=== PATIENT | male | born 1970 | race Caucasian/White ===

== ENCOUNTER 2021-06-02 10:31 | Emergency (ER) | payer BC, SELFPAY ==
[2021-06-02 11:13] VITALS: BP 162/98; PULSE 60; RESP 18; TEMP 36.9; O2SAT 96; BMI 26.4
--- NOTE | 2021-06-02 11:24 | CT_ITS ---
WS: [id number] CT abdomen pelvis w con* [id number] REASON FOR EXAM: Abd pain IV CONTRAST ADMINISTERED: 95 mL of Omnipaque 300 TOTAL EXAM DLP: 1472.[address] scans at [facility] use at least one of these dose optimization techniques: automat ed exposure control; mA and/or kV adjustment per patient size (includes targeted exams where dose is matched to clinical indication); or iterative reconstruction. FINDINGS: ABDOMEN: The liver, spleen, pancreas, and gallbladder are unremarkable. The adrenals and the right kidney are normal. There is an infiltrative process in the perinephric space around the left kidney. This infiltrative p rocess extends distally from the ureteropelvic junction inferiorly paralleling the course of the uret er. There is mild dilatation of the renal pelvis. There is hyperenhancement of the left ureter to the level of the urinary bladder. There is faint extravasation of contrast(urine) extending distally in close approximation of the ureter. No abdominal mass or adenopathy is identified. No bowel abnormality is identified. There is a normal appendix. PELVIS: There is a 3 to 4 mm calculus at the left ureterovesical junction. No mass, adenopathy, free fluid, or focal fluid collection. CT/CT abdomen pelvis w con* [id number] IMPRESSION: The findings are felt to represent passage of a small calculus from the left ki dney to the ureteral vesicle junction with presumed obstructive uropathy with s ubsequent forniceal rupture and perinephric urine extravasation with retroperit caro extension parallel to the left ureter. The forniceal rupture has decompre ssed the obstruction. The stomach remains at the ureterovesical junction.
--- NOTE | 2021-06-02 11:25 | ED_ITS ---
HPI - Abdominal Pain General: Chief Complaint: Abdominal Pain Stated Complaint: ABD PAIN Time Seen by Provider: 06/02/21 11:21 History of Present Illness: HPI narrative: This patient is a 50-year-old male that presents to the emergency department for severe left lower quadrant abdominal pain some insulin is guarding. Patient states it began suddenly significant amount of pain and made him have nausea and vomiting. Patient denies diarrhea or constipation. Denies any history of surgery. Will do medical evaluation treat as needed MD elicited complaint: abdominal pain Onset (ago): hour(s) Pain Consistency: constant Location: LLQ Severity: severe Quality: aching and sharp Radiation: none Migration to: no migration Exacerbating factors: nothing Relieving factors: nothing Associated Symptoms: Reports nausea and vomiting; Denies chills, dysuria and fever(s) Review of Systems General: Reports: 10 or more systems reviewed and unremarkable except in HPI and below Const: Denies: fever(s), chills, body aches or fatigue Eyes: Denies: change in vision or blurry vision ENMT: Denies: throat pain, hoarseness or mouth pain Card: Denies: chest pain, palpitations, irregular heart rhythm, edema, swelling of feet/ankles or lightheadedness Resp: Denies: dyspnea, productive cough, non-productive cough, wheezing or pain on inspiration GI: Reports: abdominal pain, nausea and vomiting : Denies: flank pain, dysuria, urinary frequency, urinary urgency or urinary hesitancy Musc: Denies: neck pain, back pain, extremity pain, extremity swelling, joint pain, joint swelling, joint redness, joint warmth or limited range of motion Skin/Breast: Denies: rash, pruritus, erythema or skin tenderness Neuro: Denies: headache(s), numbness in extremities or weakness in extremities Psych: Denies: anxiety or depression Physical Exam Const: COMMON NORMALS: no acute distress, average body habitus, patient oriented x3, no limitations, healthy appearing, alert and well nourished HENMT: COMMON NORMALS: normocephalic, atraumatic, hearing grossly normal bilaterally, external ears normal, EAC's normal, TM's normal bilaterally, Normal external nose present, Normal nasal mucous membranes and turbinates present, moist oral mucous membranes, oropharynx normal, dentition normal and gingiva normal HEAD & SCALP: normocephalic and atraumatic NOSE: Normal external nose present and Normal nasal mucous membranes and turbinates present EXTERNAL EAR: Yes external ears normal EXTERNAL AUDITORY CANAL: EAC's normal TYMPANIC MEMBRANE: TM's normal bilaterally Neck/C-Spine: COMMON NORMALS: full ROM, no lymphadenopathy, supple, no meningeal signs, no JVD, Thyroid normal and No carotid bruits THYROID: Thyroid normal Chest: COMMONS NORMALS: normal inspection of the chest, normal palpation of entire chest wall, normal inspection of the breasts and normal palpation of the breasts Breast/axilla inspection: Yes normal inspection of the breasts BREAST/AXILLA PALPATION: Yes normal palpation of the breasts Resp: COMMON NORMALS: normal respiratory effort, No retractions, No use of accessory muscles, clear to auscultation bilaterally and percussion normal AUSCULTATION: clear to auscultation bilaterally PERCUSSION: percussion normal Cardio: COMMON NORMALS: no JVD, regular rate, regular rhythm, S1 normal heart sound present, S2 normal heart sound present, No gallops present (Cardio), No clicks present (Cardio), No murmurs present (Cardio), No rub (Cardio) and Peripheral pulses 2+ throughout RATE: regular rate RHYTHM: regular rhythm HEART SOUNDS: S1 normal heart sound present and S2 normal heart sound present PERIPHERAL PULSES: Peripheral pulses 2+ throughout GI: COMMON NORMALS: Normal to inspection, nondistended, normoactive bowel sounds present, Soft to palpation, No hepatosplenomegaly present, no masses and no bruits PALPATION: Yes Soft to palpation, Yes Tenderness to palpation present (GI) Details: LLQ and Yes No hepatosplenomegaly present GI image (male): 1. Guarding tender this area : COMMON NORMALS: Yes no CVA tenderness BLADDER/KIDNEY EXAM: Yes no CVA tenderness Back/Pelvis: COMMON NORMALS: no CVA tenderness, thoracic and lumbar spine normal to inspection, no thoracic nor lumbar tenderness, thoraco-lumbar ROM normal and straight leg raise negative bilaterally Extremity: COMMON NORMALS: normal to inspection, full ROM, capillary refill normal, no joint enlargement, no clubbing, cyanosis or edema, no calf tenderness and no pedal edema Neuro: COMMON NORMALS: patient oriented x3 SENSORIUM/ORIENTATION: Yes alert MENINGEAL SIGNS: Yes no meningeal signs Course Reevaluation(s): Reevaluation #1: I did discuss at length with patient and family about options. And recommendations by Dr. Cisse. We will give patient additional pain medicine at this time and monitor to see if pain control can be achieved. Patient states pain is much better at this time but still rates it 6 out of 10. Time: 13:44 Reevaluation #2: Patient is pain-free at this time. I did discuss sling with patient about options. Patient may be given a prescription for pain medications. Encourage p.o. fluids. Take medications as prescribed. Follow-up with Dr. Cisse in 2 to 3 days. You must call for an appointment.. Return to the emergency department as needed. Time: 14:25 Consultations: Consultation #1: I did discuss at length with Dr. Cisse urology. Reviewed patient's films on CT scan. He recommends trying to get the patient pain under control and the pain can be managed may be able to discharge home and follow-up in the clinic. If patient cannot get pain under control may have to admit for pain control and further evaluation and treatment. Dr. Cisse request patient remain n.p.o. while in the emergency department. Time: 13:42 Vital Signs: Vital signs: Vital Signs Temperature 98.9 F 06/02/21 12:58 Pulse Rate 50 L 06/02/21 12:58 Respiratory Rate 18 06/02/21 14:11 Blood Pressure 146/90 06/02/21 12:58 Pulse Oximetry 95 06/02/21 12:58 MDM - Abdominal Pain MDM Narrative: Medical decision making narrative: This patient is a 50-year- old male that presents to the emergency department for severe left lower quadrant abdominal pain some insulin is guarding. Patient states it began suddenly significant amount of pain and made him have nausea and vomiting. Patient denies diarrhea or constipation. Denies any history of surgery. Will do medical evaluation treat as needed Patient is pain-free at this time. I did discuss sling with patient about options. Patient may be given a prescription for pain medications. Encourage p.o. fluids. Take medications as prescribed. Follow-up with Dr. Cisse in 2 to 3 days. You must call for an appointment.. Return to the emergency department as needed. Lab Data: Labs: Lab Results 07/28/21 07/28/21 07/28/21 Range/Units 11:28 11:28 12:30 WBC 11.9 H (4.0-10.0) 10^3/ uL RBC 5.35 H (4.1-5.3) 10^6/u L Hgb 16.5 (11.7-16.6) g/dL Hct 48.2 (42.0-52.0) % MCV 90.1 (80-94) fL MCH 30.8 (28.0-34.0) pg MCHC 34.2 (30.0-36.0) g/dL RDW 11.9 L (12.1-15.1) % Plt Count 166 (130-400) 10^3/c mm MPV 11.9 H (7.4-10.4) fL Neut % (Auto) 81.9 % Lymph % (Auto) 11.0 % Preble % (Auto) 6.2 % Eos % (Auto) 0.2 % Baso % (Auto) 0.4 % Neut # (Auto) 9.72 H (1.8-7.7) 10^3/u L Lymph # (Auto) 1.3 (0.8-4.8) 10^3/u L Preble # (Auto) 0.7 (0.2-0.9) 10^3/u L Eos # (Auto) 0.0 (0.0-0.8) 10^3/u L Baso # (Auto) 0.1 (0.0-0.1) 10^3/u L Nucleated RBC % (a uto) 0 % Nucleated RBCs # 0.0 /100WBC Sodium 139 (136-145) mmol/L Potassium 4.1 (3.5-5.1) mmol/L Chloride 100 (98-107) mmol/L Carbon Dioxide 27 (22-29) mmol/L Anion Gap 16.1 (5-19) BUN 16 (6-20) mg/dL Creatinine 1.0 (0.7-1.2) mg/dL GFR Calculation 79.8 L (90-130) mL/min Glucose 116 H (65-115) mg/dL Calculated Osmolal ity 290 (285-295) mOsm/k g Calcium 9.3 (8.5-10.5) mg/dL Total Bilirubin 0.9 (0.15-1.2) mg/dL AST 22 (0-40) U/L ALT 23 (0-41) U/L Alkaline Phosphata se 51 (40-130) IU/L Total Protein 7.1 (6.6-8.7) g/dL Albumin 4.7 (3.5-5.2) g/dL Globulin 2.4 (1.3-4.6) g/dL Lipase 17 (13-60) U/L Urine Color Yellow (Yellow) Urine Appearance Clear (CLEAR) Urine pH 5 (5-7) Ur Specific Gravit y 1.025 (1.005-1.030) Urine Protein Neg (Negative) Urine Glucose (UA) Norm (Normal) Urine Ketones 2+ H (Negative) Urine Blood Neg (Negative) Urine Nitrate Negative (Negative) Urine Bilirubin Neg (Negative) Urine Urobilinogen 1 H (Negative) mg/dL Ur Leukocyte Karine ase Negative (Negative) Imaging Data ^: CT Abd/Pel: Attestation: I personally reviewed and interpreted this imaging study as follows: Radiologist's impression: FINDINGS: ABDOMEN: The liver, spleen, pancreas, and gallbladder are unremarkable. The adrenals and the right kidney are normal. There is an infiltrative process in the perinephric space around the left kidney. This infiltrative process extends distally from the ureteropelvic junction inferiorly paralleling the course of the ureter. There is mild dilatation of the renal pelvis. There is hyperenhancement of the left ureter to the level of the urinary bladder. There is faint extravasation of contrast(urine) extending distally in close approximation of the ureter. No abdominal mass or adenopathy is identified. No bowel abnormality is identified. There is a normal appendix. PELVIS: There is a 3 to 4 mm calculus at the left ureterovesical junction. No mass, adenopathy, free fluid, or focal fluid collection. CT/CT abdomen pelvis w con* [id number] IMPRESSION: The findings are felt to represent passage of a small calculus from the left kidney to the ureteral vesicle junction with presumed obstructive uropathy with subsequent forniceal rupture and perinephric urine extravasation with retroper itoneal extension parallel to the left ureter. The forniceal rupture has decompressed the obstruction. The stomach remains at the ureterovesical junction. Discharge Plan Discharge Patient Disposition: Home Clinical Impression: Kidney stone on left side Condition: Stable Prescriptions: New hydrocodone-acetaminophen 5-325 mg tablet 1 tab PO Q6H PRN (Reason: pain) Qty: 7 RF: 0 tamsulosin [Flomax] 0.4 mg capsule 0.4 mg PO DAILY Qty: 20 RF: 0 diclofenac sodium 75 mg tablet,delayed release (DR/EC) 75 mg PO BID PRN (Reason: pain) Qty: 20 RF: 0 No Action multivitamin Tablet 1 tab PO DAILY RF: 0 pantoprazole 20 mg tablet,delayed release (DR/EC) 20 mg PO QAM RF: 0 levothyroxine 125 mcg tablet 125 mcg PO QAM RF: 0 albuterol sulfate 90 mcg/actuation HFA aerosol inhaler 1 - 2 puff inhalation Q4H PRN (Reason: Shortness Of Breath) RF: 0 Claritin 10 mg Tablet 10 mg PO DAILY PRN (Reason: Allergy Symptoms) RF: 0 Elderberry 200 mg Capsule 200 mg PO DAILY RF: 0 Discharge Orders: Discharge ED (Routine); Ordered 06/02/21 Ordered By: Demario Huber Referrals: Jose Cisse MD [Physician] - Discharge Diet: Advance as tolerated and Clear Liquid Discharge Activity: Increase activity as tolerated Patient Instructions: Opioid Safety Activity Restrictions/Additional Instructions: Encourage p.o. fluids. Take medications as prescribed. Follow-up with Dr. Cisse in 2 to 3 days. You must call for an appointment.. Return to the emergency department as needed. Coding Level of Care Code ED Information Systems Administrator for Tamela Cummins Exam Comprehensive
[2021-06-02 11:37] LABS: Basophils # 0.1 10^3/uL (0.0-0.1); Basophils % 0.4 %; Eosinophils % 0.2 %; Hematocrit 48.2 % (42.0-52.0); Hemoglobin 16.5 g/dL (11.7-16.6); Lymphocytes # 1.3 10^3/uL (0.8-4.8); Mean Corpuscular HGB Conc 34.2 g/dL (30.0-36.0); Mean Corpuscular Hemoglobin 30.8 pg (28.0-34.0); Mean Corpuscular Volume 90.1 fL (80-94); Mean Platelet Volume 11.9 fL (7.4-10.4); Monocytes # 0.7 10^3/uL (0.2-0.9); Monocytes % 6.2 %; Neutrophils # 9.72 10^3/uL (1.8-7.7); Neutrophils % 81.9 %; Nucleated Red Blood Cells % 0 %; Platelet Count 166 10^3/cmm (130-400); Red Blood Count 5.35 10^6/uL (4.1-5.3); Red Cell Distribution Width 11.9 % (12.1-15.1); White Blood Count 11.9 10^3/uL (4.0-10.0)
[2021-06-02 11:49] VITALS: RESP 24
[2021-06-02] MEDS: ondansetron 2 mg/ML SDV 2 mL 4 MG IVP (11:49)
[2021-06-02] MEDS: sodium chloride 0.9% 1,000 ML 999 ML IV (11:49)
[2021-06-02] MEDS: morphine 4 mg/mL SDV 1 mL IVP (11:49)
[2021-06-02 11:55] LABS: Alanine Aminotransferase 23 U/L (0-41); Albumin Level 4.7 g/dL (3.5-5.2); Alkaline Phosphatase 51 IU/L (40-130); Anion Gap 16.1 (5-19); Aspartate Amino Transferase 22 U/L (0-40); Blood Urea Nitrogen 16 mg/dL (6-20); Calcium 9.3 mg/dL (8.5-10.5); Carbon Dioxide 27 mmol/L (22-29); Chloride 100 mmol/L (98-107); Globulin 2.4 g/dL (1.3-4.6); Glomerular Filtration Rate 79.8 mL/min (90-130); Glucose 116 mg/dL (65-115); Lipase 17 U/L (13-60); Osmolality Calculated 290 mOsm/kg (285-295); Potassium 4.1 mmol/L (3.5-5.1); Sodium 139 mmol/L (136-145); Total Bilirubin 0.9 mg/dL (0.15-1.2); Total Protein 7.1 g/dL (6.6-8.7)
[2021-06-02] MEDS: iohexol 300 mg/mL 100 mL Btl IV (12:47)
[2021-06-02 12:51] LABS: Add Urine Microscopic? NO; Charge for UA Resulting for Rev
[2021-06-02] MEDS: ketorolac 30 mg/mL INJ 15 MG IVP (12:52)
[2021-06-02 12:54] LABS: Urine Appearance Clear (CLEAR); Urine Color Yellow (Yellow)
[2021-06-02 12:55] LABS: Bilirubin Urine Neg (Negative); Blood Urine Neg (Negative); Glucose Urine UA Norm (Normal); Ketones Urine 2+ (Negative); Leukocyte Esterase Urine Negative (Negative); Nitrate Urine Negative (Negative); Protein Urine Neg (Negative); Specific Gravity, Urine 1.025 (1.005-1.030); Urobilinogen Urine 1 mg/dL (Negative); pH Urine 5 (5-7)
[2021-06-02 12:58] VITALS: BP 146/90; PULSE 50; RESP 26; TEMP 37.2; O2SAT 95
[2021-06-02 14:11] VITALS: RESP 18
[2021-06-02] MEDS: HYDROmorphone 1 mg/mL INJ 1 mL 0.5 MG IVP (14:11)
--- NOTE | 2021-06-02 15:02 | DCPLANNER ---
foundation relations manager had message to schedule a follow up appointment for patient with Dr. Cisse. foundation relations manager called the office of Dr. cisse, spoke with Ham, gave clinic patients information. foundation relations manager was told that patients information would be printed and reviewed. Clinic will call patient with appointment information.
--- NOTE | 2021-06-08 13:27 | DCPLANNER ---
Patient had a follow up appointment scheduled for 06.03.[address] Cisse - patient did attend appointment.
== END 2021-06-02 14:35 | disposition home or self-care (01) ==
PROVIDERS: Physician Assistant; Emergency Provider Emergency Medicine
DX: N20.0 Calculus of kidney (principal)
CPT/HCPCS: 74177; 80053; 81003; 83690; 85025; 96361; 96374; 96375; 99284; J1170; J1885; J2270; J2405; J7030; Q9967

== ENCOUNTER 2021-06-03 08:54 | Outpatient (CLI) | payer BC, SELFPAY ==
--- NOTE | 2021-06-03 09:03 | XR_ITS ---
WS: [id number] XR KUB [id number] REASON FOR EXAM: STONES FINDINGS: CT scan from the prior day demonstrated a small left ureteral vesicle junction calculus. No intrarenal calculi. No calculi along the course of the right ureter. There is a minute calcification in the left lower pelvis which may represent the calculus seen on the previous CT scan. No other significant abnormality is identified. XR/XR KUB [id number] IMPRESSION: Equivocal demonstration of the distal left ureteral calculus noted on recent CT scan.
== END 2021-06-03 08:55 | disposition home or self-care (01) ==
PROVIDERS: Visit Provider Urology
DX: N20.0 Calculus of kidney (principal)
CPT/HCPCS: 74018; 81003

== ENCOUNTER 2022-06-07 11:37 | Outpatient (CLI) | payer BC, SELFPAY ==
--- NOTE | 2022-06-07 11:45 | XR_ITS ---
WS: [id number] KUB, AP view, 06/07/2022 Clinical Data: LEFT URETERAL CALCULUS Comparison: KUB, 06/03/2021. Findings: No abnormal intraabdominal masses or calcifications are seen. There is no dilatated small bowel or ev idence of obstruction. Fecal material and bowel gas obscure detail over both kidneys. XR/XR KUB [id number] Impression: Negative KUB.
== END 2022-06-07 11:38 | disposition home or self-care (01) ==
PROVIDERS: Visit Provider Urology
DX: N20.1 Calculus of ureter (principal); N20.9 Urinary calculus, unspecified
CPT/HCPCS: 74018; 81003; 99213

== ENCOUNTER → 2023-03-29 09:43 | Outpatient (BNVA) | payer BC, SELFPAY | PROVIDERS: PCP Family Medicine; Visit Provider Family Medicine | DX: E03.9 Hypothyroidism, unspecified (principal); R35.1 Nocturia; Z00.00 Encounter for general adult medical examination without abnormal findings | CPT/HCPCS: 80053; 80061; 84153; 84443 ==